=== PATIENT | male | born 1960 | race Caucasian/White ===

== ENCOUNTER 2017-09-11 01:26 | Emergency (ER) | payer OTHER ==
[~2017-09-11] VITALS: Ht 170.2 cm; Wt 99.8 kg
[~2017-09-11 01:26] MED LIST: ATORVASTATIN CA10 M1 PO; BIO-CEF500 M1 PO; FUROSEMIDE20 MG PO; GLIPIZIDE1 PO1 PO; GOOD SENSE ASPI81 M3 PO; HYDROXYZINE50 M1 PO; KLOR-CON M1010 MEQ PO; LISINOPRIL1 PO1 PO; LOP600 PO; METFORMIN500 M1 PO; NOR10T PO; PLAVIX75 MG PO; SIMVASTATIN40 M1 PO; SULFAMETH/TRIME16 ML; [UNRECOGNIZED DRUG - CODE]
[2017-09-11 01:31] VITALS: Ht 170.2 cm; Wt 99.8 kg
[2017-09-11 02:44] LABS: CARBON DIOXIDE 23.5 mmol/L (21-32); CHLORIDE SERUM 104 mmol/L (98-107); CREATININE SERUM 0.7 mg/dL (0.7-1.3); GFR1 > 60 mL/min; GLUCOSE SERUM 258 mg/dL (74-106); POTASSIUM SERUM 4.1 mmol/L (3.5-5.1); SODIUM SERUM 139 mmol/L (136-145)
[2017-09-11 02:58] LABS: PLATELET COUNT 300 x10^3mcL (130-400)
[2017-09-11 03:02] LABS: BASOPHIL % 0.8 % (0-2)
[2017-09-11 04:41] VITALS: BP 134/86
== END 2017-09-11 04:41 | disposition home or self-care (01) ==
LOC: ED 01:26
PROVIDERS: Emergency Medicine
DX: F41.9 Anxiety disorder, unspecified (principal); R07.89 Other chest pain; I10 Essential (primary) hypertension; E11.9 Type 2 diabetes mellitus without complications; E78.00 Pure hypercholesterolemia, unspecified
CPT/HCPCS: 36415; 83880

== ENCOUNTER 2017-09-13 11:32 | Inpatient (IN) | payer OTHER ==
[~2017-09-13] VITALS: Ht 167.6 cm; Wt 107.1 kg
[2017-09-13 11:48] VITALS: Ht 167.6 cm; Wt 107.1 kg
[2017-09-13 12:13] LABS: BASOPHIL % 0.4 % (0-2); PLATELET COUNT 208 x10^3mcL (130-400)
[2017-09-13 12:17] LABS: CALCIUM 8.1 mg/dL (8.5-10.1); CHLORIDE SERUM 101 mmol/L (98-107); CREATININE SERUM 0.8 mg/dL (0.7-1.3); GFR1 > 60 mL/min; GLUCOSE SERUM 319 mg/dL (74-106); POTASSIUM SERUM 4.7 mmol/L (3.5-5.1); SODIUM SERUM 135 mmol/L (136-145)
[2017-09-13 12:19] LABS: RED CELL DISTRIBUTION WIDTH 16.2 % (11.5-14.5)
[2017-09-13] MEDS ORDERED: CARVEDILOL3.125 M1 PO (14:04)
[2017-09-13] MEDS ORDERED: ALDACTONE25 MG PO (14:04)
[2017-09-13] MEDS ORDERED: ZESTRIL5 MG PO (14:04)
[2017-09-13] MEDS ORDERED: XARELTO10 M1 PO (14:05)
[2017-09-13] MEDS ORDERED: LACTULOSE10 GM/152 PO (14:06)
[2017-09-13 14:49] VITALS: BP 108/78
[2017-09-13 17:39] VITALS: BP 105/64
[2017-09-13 21:37] VITALS: BP 102/78
[2017-09-14 01:34] LABS: AMPHETAMINE QUAL UR NONE DETECTED (See below)
[2017-09-14 04:52] LABS: CHLORIDE SERUM 103 mmol/L (98-107); POTASSIUM SERUM 4.3 mmol/L (3.5-5.1); SODIUM SERUM 139 mmol/L (136-145)
[2017-09-14 04:53] LABS: CARBON DIOXIDE 26.4 mmol/L (21-32); CREATININE SERUM 0.6 mg/dL (0.7-1.3); GFR1 > 60 mL/min; GLUCOSE SERUM 157 mg/dL (74-106)
[2017-09-14 05:08] VITALS: BP 121/88
[2017-09-14 08:11] VITALS: BP 121/88
[2017-09-14 10:07] VITALS: BP 100/73
== END 2017-09-14 11:15 | disposition home or self-care (01) | DRG 194 ==
LOC: ED 11:32 → DU 13:46
PROVIDERS: Emergency Medicine; Internal Medicine Pulmonary Disease
DX: I11.0 Hypertensive heart disease with heart failure (principal); I42.7 Cardiomyopathy due to drug and external agent; I50.23 Acute on chronic systolic (congestive) heart failure; I48.2 Chronic atrial fibrillation; F41.9 Anxiety disorder, unspecified; E78.00 Pure hypercholesterolemia, unspecified; E66.9 Obesity, unspecified; E11.9 Type 2 diabetes mellitus without complications; T43.625A Adverse effect of amphetamines, initial encounter; I25.2 Old myocardial infarction; Z95.810 Presence of automatic (implantable) cardiac defibrillator; Y92.89 Other specified places as the place of occurrence of the external cause
CPT/HCPCS: 82962; 83880; J1650; J1940; J3475; J7030

== ENCOUNTER 2017-09-18 11:04 | Inpatient (IN) | payer OTHER ==
[~2017-09-18] VITALS: Ht 167.6 cm; Wt 110.7 kg
[~2017-09-18 11:04] MED LIST changes: +ALDACTONE25 MG PO; +CARVEDILOL3.125 M1 PO; -GOOD SENSE ASPI81 M3 PO; +LACTULOSE10 GM/152 PO; +XARELTO10 M1 PO; +ZESTRIL5 MG PO
[2017-09-18 11:13] VITALS: Ht 167.6 cm; Wt 110.7 kg
[2017-09-18 11:35] LABS: BASOPHIL % 0.3 % (0-2); PLATELET COUNT 186 x10^3mcL (130-400)
[2017-09-18 11:39] LABS: RED CELL DISTRIBUTION WIDTH 16.6 % (11.5-14.5)
[2017-09-18 11:41] LABS: CALCIUM 8.2 mg/dL (8.5-10.1); CARBON DIOXIDE 25.8 mmol/L (21-32); CHLORIDE SERUM 100 mmol/L (98-107); CREATININE SERUM 0.7 mg/dL (0.7-1.3); GFR1 > 60 mL/min; GLUCOSE SERUM 306 mg/dL (74-106); POTASSIUM SERUM 4.3 mmol/L (3.5-5.1); SODIUM SERUM 133 mmol/L (136-145)
[2017-09-18 11:47] LABS: ALBUMIN 2.9 g/dL (3.4-5.0); ALKALINE PHOSPHATASE 283 U/L (46-116); ALT/SGPT 25 U/L (16-63); AST/SGOT 18 U/L (15-37); TOTAL PROTEIN, SERUM 7.1 g/dL (6.4-8.2)
[2017-09-18 13:17] LABS: microscopic required? NO
[2017-09-18 13:27] LABS: urine erythrocyte NEGATIVE (NEGATIVE)
[2017-09-18 15:00] VITALS: BP 117/82
[2017-09-18 17:35] VITALS: BP 102/66
[2017-09-18 20:41] VITALS: BP 100/64
[2017-09-19 05:40] VITALS: BP 97/65
[2017-09-19 09:32] VITALS: BP 98/67
[2017-09-19 16:35] VITALS: BP 100/74
[2017-09-19 22:05] VITALS: BP 105/69
[2017-09-20 04:56] VITALS: BP 115/86
[2017-09-20 06:26] LABS: CALCIUM 8.7 mg/dL (8.5-10.1); CARBON DIOXIDE 31.3 mmol/L (21-32); CHLORIDE SERUM 102 mmol/L (98-107); CREATININE SERUM 0.7 mg/dL (0.7-1.3); GFR1 > 60 mL/min; GLUCOSE SERUM 129 mg/dL (74-106); POTASSIUM SERUM 4.1 mmol/L (3.5-5.1); SODIUM SERUM 138 mmol/L (136-145)
[2017-09-20] MEDS ORDERED: FUROSEMIDE20 MG PO (07:55)
[2017-09-20 08:27] VITALS: BP 115/86
[2017-09-20 09:17] VITALS: BP 91/62
[2017-09-20] MEDS ORDERED: GOOD SENSE ASPI81 M3 PO (10:27)
== END 2017-09-20 17:44 | disposition home health service (06) | DRG 194 ==
LOC: ED 11:04 → DU 13:28
PROVIDERS: Emergency Medicine; Internal Medicine Pulmonary Disease
DX: I11.0 Hypertensive heart disease with heart failure (principal); G93.1 Anoxic brain damage, not elsewhere classified; I25.2 Old myocardial infarction; I42.9 Cardiomyopathy, unspecified; I50.20 Unspecified systolic (congestive) heart failure; E11.9 Type 2 diabetes mellitus without complications; F41.9 Anxiety disorder, unspecified; I48.2 Chronic atrial fibrillation; E66.9 Obesity, unspecified; I87.8 Other specified disorders of veins; Z95.810 Presence of automatic (implantable) cardiac defibrillator
CPT/HCPCS: 82962; 83880; G0480; J0295; J0696; J1940; J7030

== ENCOUNTER 2018-02-14 15:27 | Inpatient (IN) | payer OTHER ==
[~2018-02-14] VITALS: Ht 162.6 cm; Wt 96.8 kg
[~2018-02-14 15:27] MED LIST changes: +GOOD SENSE ASPI81 M3 PO
[2018-02-14 16:51] LABS: BASOPHIL % 0.3 % (0-2); PLATELET COUNT 280 x10^3mcL (130-400)
[2018-02-14 16:54] LABS: RED CELL DISTRIBUTION WIDTH 15.8 % (11.5-14.5)
[2018-02-14 17:00] LABS: CALCIUM 8.6 mg/dL (8.5-10.1); CARBON DIOXIDE 28.3 mmol/L (21-32); CHLORIDE SERUM 106 mmol/L (98-107); GFR1 > 60 mL/min; GLUCOSE SERUM 276 mg/dL (74-106); SODIUM SERUM 140 mmol/L (136-145)
[2018-02-14] MEDS ORDERED: METFORMIN HYD1000 M2 PO (17:00)
[2018-02-14] MEDS ORDERED: GLUCOTROL10 MG PO (17:00)
[2018-02-14] MEDS ORDERED: ATORVASTATIN CA40 M1 PO (17:01)
[2018-02-14 17:05] LABS: ALBUMIN 3.5 g/dL (3.4-5.0); ALKALINE PHOSPHATASE 147 U/L (46-116); ALT/SGPT 32 U/L (16-63); AST/SGOT 20 U/L (15-37); BILIRUBIN TOTAL 1.58 mg/dL (0.20-1.00); MAGNESIUM 1.7 mg/dL (1.8-2.4); PHOSPHOROUS 3.3 mg/dL (2.5-4.9); TOTAL PROTEIN, SERUM 8.2 g/dL (6.4-8.2)
[2018-02-14 22:21] LABS: microscopic required? NO
[2018-02-14 22:24] LABS: UA SPECIFIC GRAVITY <=1.005 (1.005-1.035); urine erythrocyte NEGATIVE (NEGATIVE)
[2018-02-14 23:53] VITALS: BP 107/74
[2018-02-15 00:08] VITALS: Ht 162.6 cm; Wt 96.8 kg
[2018-02-15 05:16] VITALS: BP 110/84
[2018-02-15 06:29] LABS: BASOPHIL % 0.3 % (0-2); PLATELET COUNT 242 x10^3mcL (130-400)
[2018-02-15 06:41] LABS: RED CELL DISTRIBUTION WIDTH 16.1 % (11.5-14.5)
[2018-02-15 06:47] LABS: CALCIUM 8.2 mg/dL (8.5-10.1); CHLORIDE SERUM 104 mmol/L (98-107); CREATININE SERUM 0.7 mg/dL (0.7-1.3); GFR1 > 60 mL/min; GLUCOSE SERUM 155 mg/dL (74-106); MAGNESIUM 1.8 mg/dL (1.8-2.4); POTASSIUM SERUM 4.2 mmol/L (3.5-5.1); SODIUM SERUM 138 mmol/L (136-145)
[2018-02-15 07:58] VITALS: BP 126/88
[2018-02-15 08:01] LABS: AMPHETAMINE QUAL UR POSITIVE (See below)
[2018-02-15 12:06] VITALS: BP 142/99
[2018-02-15 18:16] VITALS: BP 131/91
[2018-02-15 20:03] VITALS: BP 121/83
[2018-02-16 05:04] VITALS: BP 140/84
[2018-02-16 08:55] VITALS: BP 146/99
[2018-02-16 10:23] VITALS: BP 146/99
== END 2018-02-16 14:20 | disposition home or self-care (01) | DRG 347 ==
LOC: ED 15:27 → DU 22:31 → MU 22:31 → DU 23:37 → MU 02-15 02:53
PROVIDERS: Emergency Medicine; Internal Medicine Pulmonary Disease
DX: M50.81 Other cervical disc disorders, high cervical region (principal); I42.8 Other cardiomyopathies; I95.9 Hypotension, unspecified; M25.512 Pain in left shoulder; I48.2 Chronic atrial fibrillation; M25.511 Pain in right shoulder; I10 Essential (primary) hypertension; E66.9 Obesity, unspecified; E11.9 Type 2 diabetes mellitus without complications; F41.9 Anxiety disorder, unspecified; E78.00 Pure hypercholesterolemia, unspecified; W18.39XA Other fall on same level, initial encounter; F17.210 Nicotine dependence, cigarettes, uncomplicated; F10.10 Alcohol abuse, uncomplicated; Z79.01 Long term (current) use of anticoagulants; Z79.84 Long term (current) use of oral hypoglycemic drugs; I25.2 Old myocardial infarction; Z95.0 Presence of cardiac pacemaker; Y93.89 Activity, other specified; Y92.89 Other specified places as the place of occurrence of the external cause
CPT/HCPCS: 82962; J2270; J7030; Q0092; Q9967

== ENCOUNTER 2018-03-07 14:25 | Inpatient (IN) | payer OTHER ==
[~2018-03-07] VITALS: Ht 167.6 cm; Wt 107.3 kg
[~2018-03-07 14:25] MED LIST changes: +ATORVASTATIN CA40 M1 PO; +GLUCOTROL10 MG PO; +METFORMIN HYD1000 M2 PO
[2018-03-07 16:11] LABS: PLATELET COUNT 363 x10^3mcL (130-400)
[2018-03-07 16:18] LABS: RED CELL DISTRIBUTION WIDTH 15.4 % (11.5-14.5)
[2018-03-07 16:20] LABS: CALCIUM 8.3 mg/dL (8.5-10.1); CARBON DIOXIDE 26.1 mmol/L (21-32); CHLORIDE SERUM 97 mmol/L (98-107); GFR1 > 60 mL/min; GLUCOSE SERUM 94 mg/dL (74-106); POTASSIUM SERUM 4.1 mmol/L (3.5-5.1); SODIUM SERUM 131 mmol/L (136-145)
[2018-03-07 16:31] LABS: ALKALINE PHOSPHATASE 215 U/L (46-116); ALT/SGPT 40 U/L (16-63); AST/SGOT 46 U/L (15-37); BILIRUBIN TOTAL 1.65 mg/dL (0.20-1.00)
[2018-03-07 16:33] LABS: ALBUMIN 2.2 g/dL (3.4-5.0); TOTAL PROTEIN, SERUM 8.6 g/dL (6.4-8.2)
[2018-03-07 16:36] LABS: CK-MB 10.8 ng/mL (0-3.6); MONOCYTE 2 % (0-7); SEGMENTED NEUTROPHILS 93 % (37-75)
[2018-03-07 16:37] LABS: BAND NEUTROPHIL 0 % (0-10); BASOPHIL 0 % (0-2); PLATELET MORPHOLOGY PLATELETS NORMAL; rbc morphology (normal/abnorm) NORMAL (NORMAL)
[2018-03-07 16:54] LABS: FREE T4 1.57 ng/dL (0.76-1.46); FREE THYROXINE INDEX 2.8 ug/dL (1.4-4.5); T4(THYROXINE) 7.1 ug/dL (4.7-13.3)
[2018-03-07 17:21] LABS: ERYTHROCYTE SED RATE 97 mm/hr (0-20)
[2018-03-07 17:45] LABS: T3 TOTAL 0.65 ng/mL
[2018-03-07 20:49] VITALS: BP 98/65
[2018-03-08 06:06] LABS: PLATELET COUNT 333 x10^3mcL (130-400)
[2018-03-08 06:20] LABS: CALCIUM 7.8 mg/dL (8.5-10.1); CARBON DIOXIDE 21.9 mmol/L (21-32); CREATININE SERUM 1.5 mg/dL (0.7-1.3); PHOSPHOROUS 5.1 mg/dL (2.5-4.9); POTASSIUM SERUM 3.7 mmol/L (3.5-5.1); TOTAL PROTEIN, SERUM 7.4 g/dL (6.4-8.2)
[2018-03-08 06:37] LABS: ALBUMIN 1.8 g/dL (3.4-5.0)
[2018-03-08 07:23] VITALS: BP 93/71
[2018-03-08 09:14] VITALS: BP 115/86
[2018-03-08 09:37] LABS: BASOPHIL % 0 % (0-2); RED CELL DISTRIBUTION WIDTH 15.1 % (11.5-14.5)
[2018-03-08 17:30] VITALS: BP 84/55
[2018-03-08 21:24] VITALS: BP 91/41
[2018-03-08 22:23] VITALS: BP 111/53
[2018-03-09 03:50] VITALS: BP 110/58
[2018-03-09 07:14] LABS: PLATELET COUNT 320 x10^3mcL (130-400)
[2018-03-09 07:16] LABS: CALCIUM 7.6 mg/dL (8.5-10.1); CARBON DIOXIDE 21.2 mmol/L (21-32); CREATININE SERUM 2.7 mg/dL (0.7-1.3); POTASSIUM SERUM 4.1 mmol/L (3.5-5.1)
[2018-03-09 07:30] LABS: BASOPHIL % 0 % (0-2); RED CELL DISTRIBUTION WIDTH 14.6 % (11.5-14.5)
[2018-03-09 08:16] VITALS: BP 103/60
[2018-03-09 12:30] VITALS: BP 99/60
[2018-03-09 12:31] VITALS: BP 110/65
[2018-03-09 15:46] VITALS: BP 98/59
[2018-03-09 21:11] VITALS: BP 91/61
[2018-03-10 01:21] LABS: microscopic required? NO
[2018-03-10 01:54] LABS: UA SPECIFIC GRAVITY 1.025 (1.005-1.035); urine erythrocyte NEGATIVE (NEGATIVE)
[2018-03-10 05:40] VITALS: BP 96/67
[2018-03-10 06:26] LABS: BASOPHIL % 0.3 % (0-2); PLATELET COUNT 331 x10^3mcL (130-400)
[2018-03-10 06:36] LABS: RED CELL DISTRIBUTION WIDTH 15.6 % (11.5-14.5)
[2018-03-10 06:50] LABS: CALCIUM 7.3 mg/dL (8.5-10.1); CARBON DIOXIDE 20.9 mmol/L (21-32); CREATININE SERUM 1.9 mg/dL (0.7-1.3); MAGNESIUM 2.3 mg/dL (1.8-2.4); PHOSPHOROUS 5.4 mg/dL (2.5-4.9); POTASSIUM SERUM 4.6 mmol/L (3.5-5.1)
[2018-03-10 07:29] VITALS: BP 104/73
[2018-03-10 16:02] VITALS: BP 111/76
[2018-03-10 21:09] VITALS: BP 109/71
[2018-03-11 05:41] VITALS: BP 118/82
[2018-03-11 06:47] LABS: CALCIUM 7.8 mg/dL (8.5-10.1); CARBON DIOXIDE 19.8 mmol/L (21-32); CREATININE SERUM 1.4 mg/dL (0.7-1.3); MAGNESIUM 2.2 mg/dL (1.8-2.4); PHOSPHOROUS 3.9 mg/dL (2.5-4.9); POTASSIUM SERUM 5.2 mmol/L (3.5-5.1)
[2018-03-11 07:08] LABS: BASOPHIL % 0.2 % (0-2); PLATELET COUNT 390 x10^3mcL (130-400)
[2018-03-11 07:17] LABS: RED CELL DISTRIBUTION WIDTH 15.2 % (11.5-14.5)
[2018-03-11] MEDS ORDERED: CLEOCIN HCL300 MG PO (09:04)
[2018-03-11 09:57] VITALS: BP 110/80
[2018-03-11 12:57] VITALS: BP 110/80
[2018-03-11 14:07] VITALS: Ht 167.6 cm; Wt 107.3 kg
[2018-03-11 16:45] VITALS: BP 121/82
[2018-03-11 21:44] VITALS: BP 128/83
== END 2018-03-12 00:06 | DRG 383 ==
LOC: ED 14:25 → MU 18:29 → EDBEDREQ 18:30 → MU 20:25
PROVIDERS: Internal Medicine Nephrology; Internal Medicine Pulmonary Disease; Specialist
DX: L03.115 Cellulitis of right lower limb (principal); N17.0 Acute kidney failure with tubular necrosis; E43 Unspecified severe protein-calorie malnutrition; E11.40 Type 2 diabetes mellitus with diabetic neuropathy, unspecified; E87.1 Hypo-osmolality and hyponatremia; I10 Essential (primary) hypertension; E78.00 Pure hypercholesterolemia, unspecified; F41.9 Anxiety disorder, unspecified; E11.649 Type 2 diabetes mellitus with hypoglycemia without coma; I25.10 Atherosclerotic heart disease of native coronary artery without angina pectoris; D72.829 Elevated white blood cell count, unspecified; L03.116 Cellulitis of left lower limb; I25.2 Old myocardial infarction; Z95.0 Presence of cardiac pacemaker; Z79.4 Long term (current) use of insulin; T36.8X5A Adverse effect of other systemic antibiotics, initial encounter; Y92.89 Other specified places as the place of occurrence of the external cause; L97.929 Non-pressure chronic ulcer of unspecified part of left lower leg with unspecified severity; L97.919 Non-pressure chronic ulcer of unspecified part of right lower leg with unspecified severity; N14.1 Nephropathy induced by other drugs, medicaments and biological substances; Z68.41 Body mass index [BMI] 40.0-44.9, adult
CPT/HCPCS: 36600; 82962; 84439; 97110-GP; 97116-GP; 97530-GP; J1644; J2543; J3370; J3490; J7030; J7042; Q0092

== ENCOUNTER 2018-10-28 14:01 | Inpatient (IN) | payer OTHER ==
[~2018-10-28] VITALS: Ht 170.2 cm; Wt 94.8 kg
[~2018-10-28 14:01] MED LIST changes: +CLEOCIN HCL300 MG PO
--- NOTE | 2018-10-28 14:14 | NUR ---
EKG IN PROGRESS
--- NOTE | 2018-10-28 15:58 | NUR ---
pt walked from hotel today to here with c/o rt low lateral leg area problems.awaits er md evaluations/assessments.rosa elena dyer.
[2018-10-28 17:34] LABS: BASOPHIL % 0.7 % (0-2); PLATELET COUNT 347 x10^3mcL (130-400)
[2018-10-28 17:53] LABS: ALKALINE PHOSPHATASE 188 U/L (46-116); ALT/SGPT 33 U/L (16-63); AST/SGOT 20 U/L (15-37); BILIRUBIN TOTAL 1.29 mg/dL (0.20-1.00); CALCIUM 8.7 mg/dL (8.5-10.1); CARBON DIOXIDE 22.9 mmol/L (21-32); CHLORIDE SERUM 105 mmol/L (98-107); CREATININE SERUM 1.2 mg/dL (0.7-1.3); GFR1 > 60 mL/min; SODIUM SERUM 139 mmol/L (136-145); TOTAL PROTEIN, SERUM 8.2 g/dL (6.4-8.2)
--- NOTE | 2018-10-28 17:54 | NUR ---
IV ACCESS STARTED ASEPTICALLY,IVF STARTED.PT TOLERATED PROCEDURES WITHY NO INCIDENTS.AWAITS TEST RESULTS,REEVALUATIONS.MONITORS ON.TIMOTHY DAHL.
[2018-10-28 17:58] LABS: ALBUMIN 2.8 g/dL (3.4-5.0)
[2018-10-28 17:59] LABS: GLUCOSE SERUM 46 mg/dL (74-106)
--- NOTE | 2018-10-28 19:07 | NUR ---
PT ENDORSED TO/ACCEPTED BY JORGE FINN.
--- NOTE | 2018-10-28 19:09 | NUR ---
REPORT FROM HUMA OSCAR TO ASSUME CARE
--- NOTE | 2018-10-28 19:17 | NUR ---
PT MEDICATED PER ORDER. PT VERBALIZED UNDERSTANDING OF DISCHARGE TEACHING.
--- NOTE | 2018-10-28 20:05 | NUR ---
REPORT CALLED TO HUMA SHEPARD TO ASSUME CARE OF PT
[2018-10-28 20:29] VITALS: BP 100/66
--- NOTE | 2018-10-28 20:32 | NUR ---
RECEIVED PTFROM ED VIA [employer]. ENDORSED PT TO PRIMARY NURSE DREA
--- NOTE | 2018-10-28 20:39 | NUR ---
PT TAKEN TO MED SURG FLOOR ACCOMPANIED BY EMT. NO S/S OF DISTRESS. RESP E/U. IV SITE PATENT.
--- NOTE | 2018-10-28 20:43 | NUR ---
RECEIVED PT FROM ED, NO ACUTE DISTRESS. ORIENTED PT TO ROOM. BED IN LOWEST POSITION, SIDE RAILS UP X2, CALL LIGHT WITHIN REACH. WILL CONTINUE TO MONITOR.
--- NOTE | 2018-10-29 01:56 | NUR ---
PT CURRENTLY RESTING IN BED, NO ACUTE DISTRESS. WILL CONTINUE TO MONITOR.
[2018-10-29 02:39] LABS: microscopic required? NO
[2018-10-29 02:51] LABS: urine erythrocyte NEGATIVE (NEGATIVE)
[2018-10-29 05:00] VITALS: BP 93/63
--- NOTE | 2018-10-29 06:54 | NUR ---
PT SLEPT PERIODICALLY THROUGHOUT NIGHT, NO ACUTE DISTRESS. ALL NEEDS MET AND ATTENDED TO. NO SIGNIFICANT CHANGES. IV PATENT AND INTACT. MEDICATED PAIN PER EMAR. BED IN LOWEST POSITION, SIDE RAILS UP X2, CALL LIGHT WITHIN REACH. WILL ENDORSE CARE TO ONCOMING NURSE.
[2018-10-29 07:01] LABS: BASOPHIL % 0.2 % (0-2); PLATELET COUNT 304 x10^3mcL (130-400)
--- NOTE | 2018-10-29 07:05 | NUR ---
RECEIVED PATIENT FROM READING AIDE NURSE. PATIENT IS RESTING WITH BOTH EYES CLOSED, AROUSABLE. EDEMA NOTED TO BLE. ON ROOM AIR, RESP E/U, DENIES SOB. WEAKNESS TO RLE, ELEVATED ON 2 PILLOWS. DARK DISCOLORATION NOTED TO BLE. WOUND NOTED TO RLE, RJ NO DRAINAGE NOTED. IV NOTED TO LAC, IVF INFUSING WELL ORDERED, NO S/S ERYTHEMA. CALL LIGHT WITHIN EASY REACH. WILL CONTINUE PLAN OF CARE.
[2018-10-29 07:39] LABS: RED CELL DISTRIBUTION WIDTH 17.1 % (11.5-14.5)
[2018-10-29 07:40] LABS: CALCIUM 8.4 mg/dL (8.5-10.1); CARBON DIOXIDE 21.3 mmol/L (21-32); CHLORIDE SERUM 108 mmol/L (98-107); CREATININE SERUM 0.9 mg/dL (0.7-1.3); GFR1 > 60 mL/min; GLUCOSE SERUM 149 mg/dL (74-106); POTASSIUM SERUM 4.8 mmol/L (3.5-5.1); SODIUM SERUM 139 mmol/L (136-145)
[2018-10-29 08:07] VITALS: BP 107/80
[2018-10-29 11:47] VITALS: BP 110/69
--- NOTE | 2018-10-29 13:05 | NUR ---
PATIENT RESTING EASY. NO C/O PAIN OR DISCOMFORT AT THIS TIME. STATES ALL NEEDS ATTENDED TO. DR JENKINS MADE AWARE OF WOUND TO RIGHT LOWER LEG RJ, DENIES NEED FOR DRESSING AT THIS TIME. WOUND CARE CONSULT ORDERED PER DR JENKINS. WILL CONTINUE TO MONITOR.
[2018-10-29 16:10] VITALS: BP 100/59
--- NOTE | 2018-10-29 18:46 | NUR ---
PATIENT IN NO ACUTE DISTRESS. ON ROOM AIR, RESP E/U, DENIES SOB. CALL LIGHT WITHIN EASY REACH. WILL ENDORSE TO [employer]UILL PICKING MACHINE OPERATOR NURSE.
--- NOTE | 2018-10-29 19:54 | NUR ---
PT CURRENTLY RESTING IN BED, NO ACUTE DISTRESS. A/O X4. NO TELE, MED/SURG. DENIES CHEST PAIN. PULSES PALPABLE IN ALL EXTREMITIES, SWELLING NOTED TO RLE. LUNG SOUNDS CTA BILATERALLY, DENIES SOB. BOWEL SOUNDS ACTIVE, LAST BM 10/28/18. VOIDING WELL. MILD RLE WEAKNESS NOTED. BLE DARK DISCOLORATION. RLE ERRYTHEMA AND WOUND, RJ. IV PATENT AND INTACT. BED IN LOWEST POSITION, SIDE RAILS UP X2, CALL LIGHT WITHIN REACH. WILL CONTINUE TO MONITOR.
[2018-10-29 20:59] VITALS: BP 100/60
--- NOTE | 2018-10-30 00:13 | NUR ---
PT CURRENTLY RESTING IN BED, NO ACUTE DISTRESS. WILL CONTINUE TO MONITOR.
[2018-10-30 05:46] VITALS: BP 102/66
--- NOTE | 2018-10-30 06:02 | NUR ---
PT SLEPT PERIODICALLY THROUGHOUT NIGHT, NO ACUTE DISTRESS. ALL NEEDS MET AND ATTENDED TO. NO SIGNIFICANT CHANGES. IV PATENT AND INTACT. BED IN LOWEST POSITION, SIDE RAILS UP X2, CALL LIGHT WITHIN REACH. WILL ENDORSE CARE TO ONCOMING NURSE.
[2018-10-30 07:13] LABS: BASOPHIL % 0.5 % (0-2); PLATELET COUNT 341 x10^3mcL (130-400)
[2018-10-30 07:16] LABS: RED CELL DISTRIBUTION WIDTH 17.4 % (11.5-14.5)
[2018-10-30 07:44] LABS: CALCIUM 8.6 mg/dL (8.5-10.1); CARBON DIOXIDE 18.8 mmol/L (21-32); CHLORIDE SERUM 108 mmol/L (98-107); CREATININE SERUM 0.7 mg/dL (0.7-1.3); GFR1 > 60 mL/min; GLUCOSE SERUM 95 mg/dL (74-106); MAGNESIUM 1.9 mg/dL (1.8-2.4); POTASSIUM SERUM 5.1 mmol/L (3.5-5.1); SODIUM SERUM 139 mmol/L (136-145)
[2018-10-30 08:14] VITALS: BP 108/76
[2018-10-30 11:56] VITALS: BP 106/77
[2018-10-30 16:36] VITALS: BP 129/84
--- NOTE | 2018-10-30 18:35 | NUR ---
PT TOLERATED TREATMENT WELL DURING THE SHIFT, WILL REPORT TO DRIVER NURSE AND ENDORSE CARE.
--- NOTE | 2018-10-30 19:53 | NUR ---
PT CURRENTLY RESTING IN BED, NO ACUTE DISTRESS. A/O X4. NO TELE, MED/SURG. DENIES CHEST PAIN. PULSES PALPABLE IN ALL EXTREMITIES, BLE SWELLING NOTED. LUNG SOUNDS CTA BILATERALLY, DENIES SOB. BOWEL SOUNDS ACTIVE, LAST BM 10/28/18. VOIDING WELL. MILD RLE WEAKNESS, AMBULATORY. BLE DARK DISCOLORATION. RLE WOUND AND ERRYTHEMA, DIRECTOR OF EPIDEMIOLOGY. IV PATENT AND INTACT. BED IN LOWEST POSITION, SIDE RAILS UP X2, CALL LIGHT WITHIN REACH. WILL CONTINUE TO MONITOR.
[2018-10-30 20:42] VITALS: BP 99/68
--- NOTE | 2018-10-31 00:19 | NUR ---
PT CURRENTLY RESTING IN BED, NO ACUTE DISTRESS. WILL CONTINUE TO MONITOR.
[2018-10-31 05:27] VITALS: BP 115/84
[2018-10-31 06:57] LABS: ALKALINE PHOSPHATASE 182 U/L (46-116); ALT/SGPT 23 U/L (16-63); AST/SGOT 13 U/L (15-37); BILIRUBIN DIRECT 0.28 mg/dL (0.0-0.2); BILIRUBIN TOTAL 0.94 mg/dL (0.20-1.00); CALCIUM 8.9 mg/dL (8.5-10.1); CARBON DIOXIDE 21.4 mmol/L (21-32); CHLORIDE SERUM 106 mmol/L (98-107); CREATININE SERUM 0.8 mg/dL (0.7-1.3); GFR1 > 60 mL/min; GLUCOSE SERUM 86 mg/dL (74-106); POTASSIUM SERUM 4.8 mmol/L (3.5-5.1); SODIUM SERUM 138 mmol/L (136-145)
[2018-10-31 07:03] LABS: ALBUMIN 2.6 g/dL (3.4-5.0)
[2018-10-31 07:10] LABS: BASOPHIL % 0.4 % (0-2); PLATELET COUNT 365 x10^3mcL (130-400); RED CELL DISTRIBUTION WIDTH 17.2 % (11.5-14.5)
--- NOTE | 2018-10-31 08:00 | NUR ---
AAO TIMES 4. MED SURG PATIENT. LUNGS CTA. NO SOB. O2 SAT ON RA 96%. BS'S ACTIVE TIMES 4. HERNANDEZ STRONG WITH SLIGHT WEAKNESS TO RLE. DRIED WOUND TO RLE BROWN, NO DRAINAGE, SLIGHT ERYTHEMA SURROUNDING WOUND BED. PERIPHERAL PULSES PALPABLE. NO EDEMA. NO C/O PAIN.
[2018-10-31 09:36] VITALS: BP 118/88
--- NOTE | 2018-10-31 18:14 | NUR ---
AAO TIMES 4. MED SURG PATIENT. NO C/O PAIN. NO SOB. COOPERATIVE. WATCHING TV. AMBULATORY. DRESSING TO RLE CDI.
--- NOTE | 2018-10-31 19:48 | NUR ---
PT IS AWAKE AND ORIENTED X4. PT DENIES SEBASTIAN OR DIZZINESS AT THIS TIME. PT IS CALM AND COOPERATIEV WITH NURSING CARE. DENIES CP OR PRESSURES. PT HAS PALAPBLE PULSES BILAT ALL EXTREMITES. TRACE EDEMA NOTED TO BLE. PT ON PO XARELTO. PT HAS CLEAR LYUNG SOUNDS. RESPIRATIONS EVEN AND UNLABORED ON ROOM AIR. PT HAS ACTIVE BOWEL SOUNDS. PT HAD BM TODAY. PT DENEIS ABD PAIN AND N/V. ABD SOFT AND NONTENDER UPON PALPATINO. PT VOIDS FREELY ON OWN. PT HAS WEKANES NOTED TO RLE. BLE DISCOLORATION NOTED AND HEALING SCAB TO RLE, RJ. IV NOTED TO LAC. PT DENIES PAIN OR DISCOMFORT. NO SIGNS OF DISTRESS. WILL CONTINUE TO MONITOR.
[2018-10-31 21:09] VITALS: BP 157/110
--- NOTE | 2018-10-31 21:18 | NUR ---
DR. GRUBER PAGED AT THIS TIME. PT BP 157/110. PT DENIES SEBASTIAN OR DIZZINESS. WILL CONTINUE TO MONTIOR.
--- NOTE | 2018-10-31 21:30 | NUR ---
DR. EKATERINA MCGOWAN ORDERED CLONODIN 0.2 PO Q4 HOURS PRN FOR SBP >160 FIRST DOSE NOW. WILL CARRY OUT ORDERS.
--- NOTE | 2018-10-31 21:38 | NUR ---
DR. GRUBER ORDERED CLONODIN 0.2 PO Q4 HOURS PRN FOR SBP >160 FIRST DOSE NOW. WILL CARRY OUT ORDERS.
--- NOTE | 2018-10-31 23:14 | NUR ---
PT REMAINS IN BED AT THIS TIME RESTING. PT DENIES SEBASTIAN OR DIZZINESS. WILL CONTINUE TO MONITOR.
--- NOTE | 2018-11-01 02:38 | NUR ---
PT REMOVED IV TO LEFT HAND. NEW IV INSERTED TO LFA 22G PATENT WITH GOOD BLOOD RETURN. WILL CONTINUE TO MONITOR.
[2018-11-01 05:33] VITALS: BP 135/95
--- NOTE | 2018-11-01 06:39 | NUR ---
PT IS CALM AND COOPERATIVE WITH NURSING CARE. PT DENIES PAIN OR DISCOMFORT. PT SLEPT ON AND OFF THROUGHOUT THE EVENING. ALL PT NEEDS MET. NO SIGNS OF DISTRESS. WILL ENDORSE TO DAY NURSE.
[2018-11-01 07:05] LABS: BASOPHIL % 0.2 % (0-2)
[2018-11-01 07:20] LABS: ALKALINE PHOSPHATASE 182 U/L (46-116); ALT/SGPT 22 U/L (16-63); AST/SGOT 12 U/L (15-37); BILIRUBIN DIRECT 0.24 mg/dL (0.0-0.2); BILIRUBIN TOTAL 0.78 mg/dL (0.20-1.00); CALCIUM 9.1 mg/dL (8.5-10.1); CHLORIDE SERUM 104 mmol/L (98-107); CREATININE SERUM 0.8 mg/dL (0.7-1.3); GFR1 > 60 mL/min; GLUCOSE SERUM 132 mg/dL (74-106); POTASSIUM SERUM 4.5 mmol/L (3.5-5.1); SODIUM SERUM 138 mmol/L (136-145)
[2018-11-01 07:24] LABS: ALBUMIN 2.7 g/dL (3.4-5.0); PLATELET COUNT 411 x10^3mcL (130-400); RED CELL DISTRIBUTION WIDTH 16.7 % (11.5-14.5); TOTAL PROTEIN, SERUM 8.4 g/dL (6.4-8.2)
--- NOTE | 2018-11-01 07:26 | NUR ---
AAO TIMES 4. MED SURG PATIENT. LUNGS CTA. NO SOB. O2 SAT ON RA 100%. BS'S ACTIVE TIMES 4. HERNANDEZ STRONG. PERIPHERAL PULSES PALPABLE. TRACE EDEMA BLE. COOPERATIVE. HOMELESS, HIS PUSH CART WITH HIS BELONGINGS/CLOTHES AT BEDSIDE. NO C/O PAIN.
[2018-11-01 09:13] VITALS: BP 103/73
[2018-11-01] MEDS ORDERED: LOP600 PO (10:39)
[2018-11-01] MEDS ORDERED: ATORVASTATIN CA40 M1 PO (10:39)
[2018-11-01] MEDS ORDERED: XARELTO20 M1 PO (10:39)
[2018-11-01] MEDS ORDERED: BAY PO (10:40)
[2018-11-01] MEDS ORDERED: ZES5 PO (10:40)
[2018-11-01] MEDS ORDERED: COR3 PO (10:40)
--- NOTE | 2018-11-01 11:00 | NUR ---
WOUND CARE EVALUATION TI RLL CELLULITIS: RLL CELLULITIS WITH 7X7CM BROWN DRY SCAB, ALBA-WOUND SKIN DRY AND SCALY, +1 EDEMA, NO C/O PAIN. RECOMMENDATION: PAINT RLL SCAB WITH BETADINE SOLUTION BID AND LEAVE IT OPEN TO AIR DRY.
[2018-11-01 11:20] VITALS: BP 135/95
[2018-11-01 13:40] VITALS: Ht 170.2 cm; Wt 94.8 kg
--- NOTE | 2018-11-01 13:58 | NUR ---
GAVE DISCHARGE INSTRUCTIONS AND PRESCRIPTION. HE IS BEING DISCHARGED TO A [facility] AND CARE WHO WILL BE TAKING HIM BACK TO THE PLACE AT 1400. HE UNDERSTOOD DISCHARGE INSTRUCTIONS INCLUDING WOUND CARE. EXTRA SUPPLIED OF BETADINE, 3 BOXES AND 4" GAUZE DRESSINGS. HE WAS TOLD TO WASH IT WITH SOAP AND WATER DAILY, PAINT IT WITH BETADINE TWICE DAILY AND LEAVE OPEN TO AIR. THE IV SITE TO LFA WAS REMOVED ANGIO INTACT. COOPERATIVE. NO C/O PAIN.
== END 2018-11-01 14:30 | DRG 383 ==
LOC: ED 14:01 → MU 19:02
PROVIDERS: Emergency Medicine; Internal Medicine; Internal Medicine Pulmonary Disease; ADMIT Internal Medicine Pulmonary Disease
DX: L03.115 Cellulitis of right lower limb (principal); N17.9 Acute kidney failure, unspecified; E11.649 Type 2 diabetes mellitus with hypoglycemia without coma; E78.00 Pure hypercholesterolemia, unspecified; E78.5 Hyperlipidemia, unspecified; F41.9 Anxiety disorder, unspecified; I25.10 Atherosclerotic heart disease of native coronary artery without angina pectoris; F17.210 Nicotine dependence, cigarettes, uncomplicated; I10 Essential (primary) hypertension; Z59.0 Homelessness; I25.2 Old myocardial infarction; Z95.0 Presence of cardiac pacemaker
CPT/HCPCS: 82962; G0378; J2543; J3490; J7030; Q0092